=== PATIENT | male | born 1975 | race Two or more races ===

== ENCOUNTER → 2017-10-26 | Emergency (ER) | payer OTHER ==
[~2017-10-26] VITALS: Ht 180.3 cm; Wt 97.1 kg
[~2017-10-26] MED LIST: DUI500 PO; IBUPROFEN200 M1; MUPIROCIN22 GM TOP
== END | disposition home or self-care (01) ==
LOC: ER 09:35
DX: S90.32XA Contusion of left foot, initial encounter (principal); L03.116 Cellulitis of left lower limb; W22.8XXA Striking against or struck by other objects, initial encounter; Y93.89 Activity, other specified; Y92.89 Other specified places as the place of occurrence of the external cause; Y99.8 Other external cause status